=== PATIENT | female | born 1960 | race Caucasian/White ===

== ENCOUNTER 2018-07-15 20:51 | Observation (INO) ==
[2018-07-15] MEDS ORDERED: Thiamine (B-1) 100 MG in 0.9 % Sodium Chloride 50 ML IVPB STA (21:10)
[2018-07-15] MEDS ORDERED: Isovue-370 500 ML INFUS..BTL IV ONE (21:19)
[2018-07-15] MEDS ORDERED: 0.9 % Sodium Chloride 1,000 ML IVC ONE (21:19)
[2018-07-15] MEDS ORDERED: Ondansetron 4 MG/2 ML VIAL IVP ONE ×2 (21:25→23:54)
[2018-07-15] MEDS ORDERED: *HR* FentaNYL (PF) 100 MCG/2 ML VIAL IVP ONE ×2 (21:25→23:54)
--- NOTE | 2018-07-15 21:25 | Emergency Department Note ---
Disposition Clinical Impression: Biliary colic, RUQ pain Abdominal pain Qualifiers: Abdominal location: right upper quadrant Qualified Code(s): R10.11 - Right upper quadrant pain Cholelithiasis Qualifiers: Cholelithiasis location: gallbladder Cholecystitis presence: without cholecystitis Biliary obstruction: without biliary obstruction Qualified Code( s): K80.20 - Calculus of gallbladder without cholecystitis without obstruction Disposition: Still a Patient Condition: Good Reasons to Return/Additional Instructions: Return to the emergency department if you experience worsening abdominal pain, fevers, cannot tolerate food or liquids due to vomiting, begin vomiting blood, or have any other symptoms that concern you. Follow-up with your surgeon Dr. Rodriguez at first available appointment to discuss options for treatment of your gallstones. Take the medications prescribed to you earlier today as needed for pain and nausea. Referrals: Unruly Alvarez MD [Primary Care Provider] - Forms: ED Satisfaction Letter, Work/School Release General Adult HPI - General Chief complaint: ED Abdominal Pain Stated complaint: "Abd Pain/N/V/States Was Here Earlier Today" Time Seen by Provider: 07/15/18 21:03 Source: patient, family Mode of arrival: ambulatory Limitations: no limitations Nursing Notes Reviewed: Yes Vital Signs Reviewed: Yes - History of Present Illness HPI Narrative: 57 yo female presents to the emergency department with the complaint of right upper quadrant pain, nausea and vomiting. She was seen earlier today at this facility and diagnosed with biliary colic and gallstones but not acute cholecystitis. She was sent home with Zofran and hydrocodone. She has taken 2 hydrocodone at home but states her abdominal pain has only gotten worse. She states this abdominal pain started at 4:00 this morning and has been worsening since then. She denies fever, chills, chest pain, shortness of breath, lower abdominal pain, urinary symptoms, diarrhea, blood in her emesis or stools. Pain Scale: 10 - Related Data Previous Rx's Medication Instructions Recorded HYDROcodone/Acet 5/325 mg [[place] 1 tab PO Q6H PRN 3 Days #12 tab 07/15/18 5-325 mg] Ondansetron ODT [Zofran ODT] 4 mg SL Q6HR PRN #12 tab.rapdis 07/15/18 Allergies Allergy/AdvReac Type Severity Reaction Status Date / Time No Known Allergies Allergy Verified 06/27/18 07:15 All systems ED: reviewed and negative except as stated. Review of Systems: As Per HPI Constitutional: Denies: fever, chills, weakness Eyes: Denies: vision change ENT ED: Denies: throat pain Cardiovascular: Denies: chest pain, palpitations, dyspnea on exertion Respiratory: Denies: cough, dyspnea, wheezes Gastrointestinal: Reports: abdominal pain, nausea, vomiting. Denies: diarrhea Genitourinary: Denies: dysuria, frequency, hematuria Musculoskeletal: Reports: back pain (Right lower back) Integumentary: Denies: rash Neurological: Denies: headache, weakness Psychiatric: Denies: anxiety Endocrine: Denies: fatigue Hematological/Lymphatic: Denies: easy bleeding Past Medical History - Past Medical History Medical history: Reports: non-contributory - Social History Smoking Status: Former smoker Alcohol use: Reports: none Drug use: Reports: none Physical Exam - General Limitations: no limitations General appearance: alert, in no apparent distress - Head Head exam: atraumatic, normocephalic - Eye Eye exam: Present: normal appearance, PERRL, EOMI - ENT ENT exam: normal exam, normal oropharynx, mucous membranes moist - Neck Neck exam: Present: normal inspection. Absent: tenderness, lymphadenopathy - Chest Chest inspection: Present: normal inspection. Absent: tenderness - Respiratory Respiratory exam: Present: normal lung sounds bilaterally. Absent: wheezes - Cardiovascular Cardiovascular exam: Present: regular rate, normal rhythm - Abdominal Exam Abdominal exam: Present: soft, tenderness. Absent: distention, guarding, rebound, Ambrose's sign, tenderness at McBurney's Point Abdominal tenderness: Present: RUQ - Extremities Exam Extremities exam: Present: normal inspection. Absent: tenderness, pedal edema - Back Exam Back exam: Present: tenderness, paraspinal tenderness. Absent: CVA tenderness (R), CVA tenderness (L) - Neurological Exam Neurological exam: Present: alert, oriented X3, CN II-XII intact - Psychiatric Psychiatric exam: Present: flat affect - Skin Skin exam: Present: warm, dry, intact Course Vital Signs Temperature 98.2 F 07/15/18 21:03 Pulse Rate 78 07/15/18 21:03 Respiratory Rate 20 07/15/18 21:03 Blood Pressure 157/87 07/15/18 21:03 O2 Sat by Pulse Oximetry 97 07/15/18 21:03 Temperature 98.2 F 07/15/18 21:03 Pulse Rate 76 07/15/18 22:26 Respiratory Rate 16 07/15/18 22:26 Blood Pressure 129/66 07/15/18 22:26 O2 Sat by Pulse Oximetry 100 07/15/18 22:26 Oxygen Delivery Oxygen Delivery Room Air Medical Decision Making - MDM Narrative Medical decision making narrative: Since this patient was seen earlier today, and had a hepatic panel and bedside ultrasound done, but her pain continues to worsen we will do a further workup. Do CBC, BMP, lipase, lactic, urinalysis, troponin, EKG, CT abdomen and pelvis with contrast. With the patient fentanyl and Zofran for pain and nausea. 2300 - as patient's lab work came back showing a slight leukocytosis, but was otherwise unremarkable. She was reassessed and her pain and nausea under control at this time. We are awaiting CAT scan. She will be signed out to the night team. - Medical Records Medical records reviewed: Yes I reviewed the patient's medical records. - Lab Data Lab results reviewed: Yes I reviewed the patient's lab results. Result diagrams: 07/15/18 21:28 07/15/18 21:28 Lab Results 07/15/18 07/15/18 07/15/18 Range/Units 21:28 21:28 21:42 WBC 13.5 H (4.3-11.1) K/mcL RBC 4.51 (3.82-4.97) M/mcL Hgb 13.0 (11.5-15.4) g/dL Hct 38.2 (35.3-44.9) % MCV 84.7 (83.0-100.0) fL MCH 28.8 (28.0-33.3) pg MCHC 34.0 (31.6-35.5) g/dL RDW 12.7 (11.5-14.5) % Plt Count 351 (140-400) K/mcL MPV 10.0 (9.4-12.4) fL Immature Gran % 0.5 (0-4) % Seg Neutrophils % 86.6 % Lymphocytes % 8.8 % Monocytes % 3.8 % Eosinophils % 0.1 % Basophils % 0.2 % Neutrophils # 11.7 H (1.6-8.9) K/mcL Lymphocytes # 1.2 (0.6-4.6) K/mcL Monocytes # 0.5 (0.0-1.3) K/mcL Eosinophils # 0.0 (0.0-0.6) K/mcL Basophils # 0.0 (0.0-0.2) K/mcL Sodium 137 (136-145) mEq/L Potassium 3.8 (3.5-5.1) mEq/L Chloride 105 (98-107) mEq/L Carbon Dioxide 24 (23-29) mEq/L BUN 11 (6-20) mg/dL Creatinine 0.77 (0.60-1.20) mg/dL Est GFR ( Amer) > 60 (> 60) Est GFR (Non-Af Amer) > 60 (> 60) BUN/Creatinine Ratio 14 (6-26) Glucose 148 H (70-105) mg/dL Calculated Osmolality 286 (280-300) Lactic Acid 1.0 (0.5-2.2) mmol/L Calcium 9.4 (8.6-10.3) mg/dL Troponin I < 0.03 (< 0.04) ng/mL Lipase 8 L (11-82) Units/L - Radiology Data Radiology results reviewed: Yes I reviewed the patient's radiology results. - EKG Data EKG #1 EKG attestation: Yes I reviewed and interpreted this EKG. EKG results narrative: EKG done at 22:30 on 07/15/2018 Her rate 69 bpm, [place] interval 150, QRS duration 96, QT 424, QTC 455 Sinus rhythm with low voltage. No signs of any ST segment elevations or depressions. No signs of acute ischemia. No old EKG for comparison.
[2018-07-15 21:40] LABS: Basophils % 0.2 %; Eosinophils % 0.1 %; Hematocrit 38.2 % (35.3-44.9); Immature Granulocytes % 0.5 % (0-4); Lymphocytes # 1.2 K/mcL (0.6-4.6); Lymphocytes % 8.8 %; Mean Corpuscular Hemoglobin 28.8 pg (28.0-33.3); Mean Corpuscular Volume 84.7 fL (83.0-100.0); Monocytes # 0.5 K/mcL (0.0-1.3); Monocytes % 3.8 %; Neutrophils # 11.7 K/mcL (1.6-8.9); Platelet Count 351 K/mcL (140-400); Red Blood Count 4.51 M/mcL (3.82-4.97); Red Cell Distribution Width 12.7 % (11.5-14.5); Segmented Neutrophils % 86.6 %
--- NOTE | 2018-07-15 21:40 | Emergency Department Note ---
Addendum entered and electronically signed by Kim Beltran 07/19/18 10:38: Original Note: Disposition Clinical Impression: RUQ pain Abdominal pain Qualifiers: Abdominal location: right upper quadrant Qualified Code(s): R10.11 - Right upper quadrant pain Disposition: Admitted As Inpatient Condition: Good Abdominal Pain HPI - General Chief Complaint: ED Abdominal Pain Stated Complaint: "Abd Pain/N/V/States Was Here Earlier Today" Time Seen by Provider: 07/15/18 21:03 Source: patient, family - History of Present Illness HPI Narrative: Patient is a 57 year old female with no significant PMH who presents with right upper quadrant abdominal pain with associated nausea and vomiting. Patient reports that her symptoms started this morning at 4am and woke her up from sleep. Patient was seen and evaluated at 11am this morning at this facility and was diagnosed with cholelithiasis and discharged home with hydrocodone and zofran for symptomatic relief and told to follow up with GI on Tuesday. Patient states that she picked up her prescriptions at 3:30pm. At that time she took zofran and hydrocodone without any relief and she took another hydrocodone at 6:30pm which also did not relieve her pain. She admits to increasing RUQ pain which she states is now radiating into her right sided low back and nausea with four episodes nonbloody emesis which is why the patient decided to come back to the ED. Patient denies chest pain, SOB, fever chills, urinary symptoms. Pain Scale: 10 - Related Data Home Medications Medication Instructions Recorded Confirmed RX: BuPROPion SR (12 HR) 150 mg PO BID 07/16/18 [Wellbutrin SR] RX: Citalopram [CeleXA] 20 mg PO DAILY 07/16/18 RX: Duloxetine HCl [Cymbalta] 60 mg PO DAILY 07/16/18 Previous Rx's Medication Instructions Recorded RX: Ondansetron ODT [Zofran ODT] 4 mg SL Q6HR PRN #12 tab.rapdis 07/15/18 Allergies Allergy/AdvReac Type Severity Reaction Status Date / Time No Known Allergies Allergy Verified 06/27/18 07:15 Constitutional: Denies: fever, chills Eyes: Denies: eye pain, vision change ENT ED: Denies: ear pain, congestion Cardiovascular: Denies: chest pain, palpitations Respiratory: Denies: cough, dyspnea Gastrointestinal: Reports: abdominal pain, nausea, vomiting. Denies: diarrhea Genitourinary: Denies: dysuria, hematuria Musculoskeletal: Reports: back pain. Denies: neck pain Integumentary: Denies: rash, abrasion Neurological: Denies: headache, weakness Abdominal Pain PMH - Past Medical History Medical history: Reports: non-contributory - Social History Smoking status: Former smoker Alcohol use: Reports: none Drug use: Reports: none Physical Exam - General Limitations: no limitations General appearance: alert, in distress (in mild painful distress) - Head Head exam: atraumatic, normocephalic, normal inspection - Eye Eye exam: Present: normal appearance, PERRL, EOMI - ENT ENT exam: normal exam, normal oropharynx, mucous membranes moist - Neck Neck exam: Present: normal inspection, full ROM, trachea midline - Chest Chest inspection: Present: normal inspection, symmetric chest wall rise - Respiratory Respiratory exam: Present: normal lung sounds bilaterally - Cardiovascular Cardiovascular exam: Present: regular rate, normal rhythm, normal heart sounds - Abdominal Exam Abdominal exam: Present: soft, tenderness. Absent: distention, guarding, rebound, rigidity Abdominal tenderness: Present: RUQ, moderate - Extremities Exam Extremities exam: Present: normal inspection, full ROM, normal capillary refill. Absent: tenderness, pedal edema - Back Exam Back exam: Present: normal inspection, full ROM, tenderness (mild tenderness in right sided low back) - Neurological Exam Neurological exam: Present: alert, oriented X3 - Psychiatric Psychiatric exam: Present: normal affect, normal mood - Skin Skin exam: Present: warm, dry, intact, normal color. Absent: rash Course Vital Signs Temperature 98.2 F 07/15/18 21:03 Pulse Rate 78 07/15/18 21:03 Respiratory Rate 20 07/15/18 21:03 Blood Pressure 157/87 07/15/18 21:03 O2 Sat by Pulse Oximetry 97 07/15/18 21:03 Temperature 98.2 F 07/15/18 21:03 Pulse Rate 78 07/15/18 21:03 Respiratory Rate 20 07/15/18 21:03 Blood Pressure 157/87 07/15/18 21:03 O2 Sat by Pulse Oximetry 97 07/15/18 21:03 Oxygen Delivery Oxygen Delivery Room Air Abdominal Pain - Lab Data Result diagrams: 07/16/18 07:12 07/16/18 07:12
[2018-07-15 21:59] LABS: BUN/Creatinine Ratio 14 (6-26); Blood Urea Nitrogen 11 mg/dL (6-20); Calcium 9.4 mg/dL (8.6-10.3); Carbon Dioxide 24 mEq/L (23-29); Chloride 105 mEq/L (98-107); Glucose 148 mg/dL (70-105); Osmolality,Calculated 286 (280-300); Potassium 3.8 mEq/L (3.5-5.1); Sodium 137 mEq/L (136-145); eGFR For Non-African Americans > 60 (> 60)
[2018-07-15 22:31] LABS: Lipase 8 Units/L (11-82); Troponin I < 0.03 ng/mL (< 0.04)
--- NOTE | 2018-07-15 23:07 | Emergency Department Note ---
Disposition Clinical Impression: Abdominal pain Qualifiers: Abdominal location: right upper quadrant Qualified Code(s): R10.11 - Right upper quadrant pain Disposition: Still a Patient Condition: Good Reasons to Return/Additional Instructions: Return to the emergency department if you experience worsening abdominal pain, fevers, cannot tolerate food or liquids due to vomiting, begin vomiting blood, or have any other symptoms that concern you. Follow-up with your surgeon Dr. Rodriguez at first available appointment to discuss options for treatment of your gallstones. Take the medications prescribed to you earlier today as needed for pain and nausea. Referrals: Unruly Alvarez MD [Primary Care Provider] - Forms: ED Satisfaction Letter, Work/School Release General Adult HPI - General Chief complaint: ED Abdominal Pain Stated complaint: "Abd Pain/N/V/States Was Here Earlier Today" Time Seen by Provider: 07/15/18 21:03 Source: patient, family Mode of arrival: ambulatory Limitations: no limitations - History of Present Illness Pain Scale: 10 - Related Data Previous Rx's Medication Instructions Recorded HYDROcodone/Acet 5/325 mg [[place] 1 tab PO Q6H PRN 3 Days #12 tab 07/15/18 5-325 mg] Ondansetron ODT [Zofran ODT] 4 mg SL Q6HR PRN #12 tab.rapdis 07/15/18 Allergies Allergy/AdvReac Type Severity Reaction Status Date / Time No Known Allergies Allergy Verified 06/27/18 07:15 Constitutional: Denies: fever, chills, weakness Eyes: Denies: vision change ENT ED: Denies: throat pain Cardiovascular: Denies: chest pain, palpitations, dyspnea on exertion Respiratory: Denies: cough, dyspnea, wheezes Gastrointestinal: Reports: abdominal pain, nausea, vomiting. Denies: diarrhea Genitourinary: Denies: dysuria, frequency, hematuria Musculoskeletal: Reports: back pain (Right lower back) Integumentary: Denies: rash Neurological: Denies: headache, weakness Psychiatric: Denies: anxiety Endocrine: Denies: fatigue Hematological/Lymphatic: Denies: easy bleeding Past Medical History - Past Medical History Medical history: Reports: non-contributory - Social History Smoking Status: Former smoker Alcohol use: Reports: none Drug use: Reports: none Physical Exam - General Limitations: no limitations General appearance: alert, in no apparent distress Course Vital Signs Temperature 98.2 F 07/15/18 21:03 Pulse Rate 78 07/15/18 21:03 Respiratory Rate 20 07/15/18 21:03 Blood Pressure 157/87 07/15/18 21:03 O2 Sat by Pulse Oximetry 97 07/15/18 21:03 Temperature 98.2 F 07/15/18 21:03 Pulse Rate 76 07/15/18 22:26 Respiratory Rate 16 07/15/18 22:26 Blood Pressure 129/66 07/15/18 22:26 O2 Sat by Pulse Oximetry 100 07/15/18 22:26 Oxygen Delivery Oxygen Delivery Room Air Medical Decision Making - Lab Data Result diagrams: 07/15/18 21:28 07/15/18 21:28 Lab Results 07/15/18 07/15/18 07/15/18 Range/Units 21:28 21:28 21:42 WBC 13.5 H (4.3-11.1) K/mcL RBC 4.51 (3.82-4.97) M/mcL Hgb 13.0 (11.5-15.4) g/dL Hct 38.2 (35.3-44.9) % MCV 84.7 (83.0-100.0) fL MCH 28.8 (28.0-33.3) pg MCHC 34.0 (31.6-35.5) g/dL RDW 12.7 (11.5-14.5) % Plt Count 351 (140-400) K/mcL MPV 10.0 (9.4-12.4) fL Immature Gran % 0.5 (0-4) % Seg Neutrophils % 86.6 % Lymphocytes % 8.8 % Monocytes % 3.8 % Eosinophils % 0.1 % Basophils % 0.2 % Neutrophils # 11.7 H (1.6-8.9) K/mcL Lymphocytes # 1.2 (0.6-4.6) K/mcL Monocytes # 0.5 (0.0-1.3) K/mcL Eosinophils # 0.0 (0.0-0.6) K/mcL Basophils # 0.0 (0.0-0.2) K/mcL Sodium 137 (136-145) mEq/L Potassium 3.8 (3.5-5.1) mEq/L Chloride 105 (98-107) mEq/L Carbon Dioxide 24 (23-29) mEq/L BUN 11 (6-20) mg/dL Creatinine 0.77 (0.60-1.20) mg/dL Est GFR ( Amer) > 60 (> 60) Est GFR (Non-Af Amer) > 60 (> 60) BUN/Creatinine Ratio 14 (6-26) Glucose 148 H (70-105) mg/dL Calculated Osmolality 286 (280-300) Lactic Acid 1.0 (0.5-2.2) mmol/L Calcium 9.4 (8.6-10.3) mg/dL Troponin I < 0.03 (< 0.04) ng/mL Lipase 8 L (11-82) Units/L Attestation Statement - Attestation Attestation: I examined this patient and my medical decision-making was reviewed with the Resident Physician. I agree with the documented findings, disposition and treatment plan as described except to the extent set forth below. 57 year old female who is a buonce back from earlier today for abdominal pain presnts with right flank pain that radiates into the right side. Rodrigo and family are very rude during the examination to myself and our facility stating that they should have gone to [place] and that this hospital does not know how to treat their patients. I have tried to do patient recovery and tried to alleviate any miscommunication but they do not appear satisfied with their care and are requesting to be admitted immeadiately. I have discussed with devyn and family that we are waiting for a CT scan and that she may have a kidney stone and we are here to help and treat her pain and nausea and have offered more medication and asked if there is any other way I can make the clinical pciture clear. Devyn and sam continue to ignore me at bedside and speak to the janitorial staff instead that has come to visit her and will not make eye contact with me. Devyn is cooperative during exam but instead speaks with guest in the room rather than answeing my questions making it difficult to perform a full evaluation. 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 I have impressed to patient and family that [facility] is here to help the patient and that it is not our intent to treat and street, and that we are actively looking for reason for her pain and will treat accordingly. I spent about 15 minutes in the room trying to do service recovery but feel that I was unsuccesssful in changing their point of view
--- NOTE | 2018-07-15 23:16 | Emergency Department Note ---
Disposition Clinical Impression: RUQ pain Abdominal pain Qualifiers: Abdominal location: right upper quadrant Qualified Code(s): R10.11 - Right upper quadrant pain Disposition: Admitted As Inpatient Condition: Good Reasons to Return/Additional Instructions: Return to the emergency department if you experience worsening abdominal pain, fevers, cannot tolerate food or liquids due to vomiting, begin vomiting blood, or have any other symptoms that concern you. Follow-up with your surgeon Dr. Rodriguez at first available appointment to discuss options for treatment of your gallstones. Take the medications prescribed to you earlier today as needed for pain and nausea. Referrals: Unruly Alvarez MD [Primary Care Provider] - Forms: ED Satisfaction Letter, Work/School Release Time of Disposition: 04:04 General Adult HPI - General Chief complaint: ED Abdominal Pain Stated complaint: "Abd Pain/N/V/States Was Here Earlier Today" Time Seen by Provider: 07/15/18 21:03 Source: patient, family Mode of arrival: ambulatory Limitations: no limitations - History of Present Illness HPI Narrative: This is a 57-year-old female received on signout from Dr. Angelique Rueda. She has right flank pain and is a bounce back from earlier today. At signout, CT was pending. See 's documentation for the full exam and history. Pain Scale: 10 - Related Data Previous Rx's Medication Instructions Recorded HYDROcodone/Acet 5/325 mg [[place] 1 tab PO Q6H PRN 3 Days #12 tab 07/15/18 5-325 mg] Ondansetron ODT [Zofran ODT] 4 mg SL Q6HR PRN #12 tab.rapdis 07/15/18 Allergies Allergy/AdvReac Type Severity Reaction Status Date / Time No Known Allergies Allergy Verified 06/27/18 07:15 Constitutional: Denies: fever, chills, weakness Eyes: Denies: vision change ENT ED: Denies: throat pain Cardiovascular: Denies: chest pain, palpitations, dyspnea on exertion Respiratory: Denies: cough, dyspnea, wheezes Gastrointestinal: Reports: abdominal pain, nausea, vomiting. Denies: diarrhea Genitourinary: Denies: dysuria, frequency, hematuria Musculoskeletal: Reports: back pain (Right lower back) Integumentary: Denies: rash Neurological: Denies: headache, weakness Psychiatric: Denies: anxiety Endocrine: Denies: fatigue Hematological/Lymphatic: Denies: easy bleeding Past Medical History - Past Medical History Medical history: Reports: non-contributory - Social History Smoking Status: Former smoker Alcohol use: Reports: none Drug use: Reports: none Physical Exam - General Limitations: no limitations General appearance: alert, in no apparent distress Course Vital Signs Temperature 98.2 F 07/15/18 21:03 Pulse Rate 78 07/15/18 21:03 Respiratory Rate 20 07/15/18 21:03 Blood Pressure 157/87 07/15/18 21:03 O2 Sat by Pulse Oximetry 97 07/15/18 21:03 Temperature 98.2 F 07/15/18 21:03 Pulse Rate 67 07/16/18 00:06 Respiratory Rate 18 07/16/18 00:06 Blood Pressure 128/72 07/16/18 00:06 O2 Sat by Pulse Oximetry 95 07/16/18 00:06 Oxygen Delivery Oxygen Delivery Room Air Medical Decision Making - MDM Narrative Medical decision making narrative: This is a 57-year-old female with right upper quadrant pain and unclear imaging. She may have cholecystitis. I discussed her case with Dr. Biggs, the on-call surgeon, who recommended that she be admitted to the hospital service and asked that he be consulted. He said that she needed a "full evaluation." The patient was comfortable with this. - Lab Data Lab results reviewed: Yes I reviewed the patient's lab results. Lab results narrative: CBC shows leukocytosis at 13.5 BMP was unremarkable Lactic acid was normal at 1.0 Lipase was low Troponin was low Result diagrams: 07/15/18 21:28 07/15/18 21:28 Lab Results 07/15/18 07/15/18 07/15/18 Range/Units 21:28 21:28 21:42 WBC 13.5 H (4.3-11.1) K/mcL RBC 4.51 (3.82-4.97) M/mcL Hgb 13.0 (11.5-15.4) g/dL Hct 38.2 (35.3-44.9) % MCV 84.7 (83.0-100.0) fL MCH 28.8 (28.0-33.3) pg MCHC 34.0 (31.6-35.5) g/dL RDW 12.7 (11.5-14.5) % Plt Count 351 (140-400) K/mcL MPV 10.0 (9.4-12.4) fL Immature Gran % 0.5 (0-4) % Seg Neutrophils % 86.6 % Lymphocytes % 8.8 % Monocytes % 3.8 % Eosinophils % 0.1 % Basophils % 0.2 % Neutrophils # 11.7 H (1.6-8.9) K/mcL Lymphocytes # 1.2 (0.6-4.6) K/mcL Monocytes # 0.5 (0.0-1.3) K/mcL Eosinophils # 0.0 (0.0-0.6) K/mcL Basophils # 0.0 (0.0-0.2) K/mcL Sodium 137 (136-145) mEq/L Potassium 3.8 (3.5-5.1) mEq/L Chloride 105 (98-107) mEq/L Carbon Dioxide 24 (23-29) mEq/L BUN 11 (6-20) mg/dL Creatinine 0.77 (0.60-1.20) mg/dL Est GFR ( Amer) > 60 (> 60) Est GFR (Non-Af Amer) > 60 (> 60) BUN/Creatinine Ratio 14 (6-26) Glucose 148 H (70-105) mg/dL Calculated Osmolality 286 (280-300) Lactic Acid 1.0 (0.5-2.2) mmol/L Calcium 9.4 (8.6-10.3) mg/dL Troponin I < 0.03 (< 0.04) ng/mL Lipase 8 L (11-82) Units/L - Radiology Data Radiology results reviewed: Yes I reviewed the patient's radiology results. CT was concerning for possible cholecystitis. Gallbladder ultrasound showed possible cholecystitis Critical Care Time Critical Care Time: No
[2018-07-16] MEDS ORDERED: Ondansetron 4 MG/2 ML VIAL IVP ONE (00:22)
[2018-07-16] MEDS ORDERED: *HR* Promethazine 25 MG/ML VIAL IVP ONE (03:58)
[2018-07-16] MEDS ORDERED: *HR* HYDROmorphone 2 MG/ML SYRINGE IVP ONE (03:58)
--- NOTE | 2018-07-16 04:09 | Internal Med History&Physical ---
Date of Encounter: 07/16/18 Time of Encounter: 04:09 Internal Medicine - H&P: HPI Chief complaint: Abdominal pain Admitted From: Home Plans for Post Hospital Care: Home History of present illness: Ms. Carroll is a 57 year old female with no significant past medical history who presented to the ED yesterday complaining of abdominal pain, nausea, vomiting, and diarrhea. Per pt's , pt began having right sided abdominal pain just inferior to the rib border at approximately 04:00 yesterday which was shortly accompanied by nausea, vomiting, and diarrhea. Emesis was non-bloody and stool was not examined for blood but no blood noted on toilet paper. Pt came to ED for the first time around 11:00, workup consisted of bedside gallbladder ultrasound which revealed cholelithiasis, LFTs and lipase were normal. Pt was discharged to home with scripts for Zofran and [place] 5 around 14:00 and was told to follow up outpatient with Dr. Rodriguez her established surgeon. Pt's reports that after discharge the pt's abdominal pain, nausea, and vomiting worsened and no longer improved with medication. They returned to the ED around 21:00 for the same but worsened symptoms. During this ED workup the pt was found to have mild leukocytosis of 13.5. CT abdomen/pelvis revealed gallbladder polyp vs stone with possible cholecystitis. Subsequent RUQ ultrasound revealed an edematous gallbladder with wall thickening, possible cholecystitis. She received multiple doses of Fentanyl and Zofran and was sleeping comfortably during the encounter with this provider. Pt's states she was not complaining of fever, chi lls, chest pain, shortness of breath, headaches, numbness, or tingling. Past Med Surg Social Fam HX - Past Medical History Medical history: non-contributory - Past Surgical History Additional surgical history: total knee - Social History Smoking Status: Former smoker Alcohol use: none Drug use: none - Family History Mother Living Status: Age at : 52 Hx Family Cancer: Yes (colon) Father Age: 85 Living Status: Still Living Brother Age: 51 Hx Family Musculoskeletal Disorders: Yes (knee replacement) Internal Medicine - H&P: Meds HYDROcodone/Acet 5/325 mg [[place] 5-325 mg] 1 tab PO Q6H PRN 3 Days #12 tab 12/01/18 [Rx] Ondansetron ODT [Zofran ODT] 4 mg SL Q6HR PRN #12 tab.rapdis 07/15/18 [Rx] Allergy/AdvReac Type Severity Reaction Status Date / Time No Known Allergies Allergy Verified 06/27/18 07:15 All Systems PM: A 10-system review of systems was performed and is negative for pertinent findings except as documented above in the HPI. - Constitutional Constitutional: no chills, no fever(s), no night sweats - EENT Eyes: no blurry vision, no change in vision, no photophobia Ears: no decreased hearing, no tinnitus Nose, mouth and throat: no nasal congestion, no sinus pain, no sinus pressure - Cardiovascular Cardiovascular ROS IM: no chest pain, no diaphoresis, no dyspnea, no dyspnea on exertion, no lightheadedness, no palpitations - Respiratory Respiratory: no cough, no dyspnea, no dyspnea on exertion, no wheezing, no chest congestion, no excessive phlegm production, no change in phlegm color - Gastrointestinal Gastrointestinal: abdominal pain, diarrhea, nausea, vomiting, no hematemesis, no hematochezia, no melena - Genitourinary Genitourinary: no dysuria, no urinary frequency, no urinary hesitancy, no urinary incontinence - Musculoskeletal Musculoskeletal ROS IM: no muscle weakness, no numbness, no tingling - Integumentary Integumentary IM: no new lesions, no unusual bruising, no jaundice - Neurological Neurological ROS: no confusion, no headache(s), no numbness, no tingling, no weakness - Hematologic/Lymphatic Hematologic/Lymphatic: no easy bleeding, no easy bruising - Constitutional Vitals: Temp Pulse Resp BP Pulse Ox 98.2 F 67 18 128/72 95 07/15/18 21:03 07/16/18 00:06 07/16/18 00:06 07/16/18 00:06 07/16/18 00:06 General appearance: Present: cooperative, A&O X 3, pleasant Exam: General: well nourished and well developed female sleeping comfortably Head: normocephalic and atraumatic Eyes: Sclera anicteric, conjunctiva pink Neck: supple, trachea midline, no masses or lymphadenopathy Lungs: CTA bilaterally, non-labored breathing. no wheezes, rales, or rhonchi Heart: RRR +s1 +S2 no murmurs, clicks, or rubs GI: abdomen soft, TTP of RUQ, mildly distended. normoactive bowel sounds Extremities: warm, peripheral pulses palpable and symmetrical. no edema, cyanosis, or calf tenderness Neuro: reported A&Ox3 with no slurred speech Skin: warm, dry, intact Internal Med - H&P Results - Labs CBC & Chem 7: 07/15/18 21:28 07/15/18 21:28 Labs: Short CBC 07/15/18 Range/Units 21:28 WBC 13.5 H (4.3-11.1) K/mcL Hgb 13.0 (11.5-15.4) g/dL Hct 38.2 (35.3-44.9) % Plt Count 351 (140-400) K/mcL Neutrophils # 11.7 H (1.6-8.9) K/mcL BMP 07/15/18 21:28 Sodium 137 Potassium 3.8 Chloride 105 Carbon Dioxide 24 BUN 11 Creatinine 0.77 Glucose 148 H Calcium 9.4 Cardiac Enzymes 07/15/18 Range/Units 21:28 Troponin I < 0.03 (< 0.04) ng/mL - Impressions ITS Impressions Abdomen/Pelvis CT 07/15/18 21:19 IMPRESSION: Gallbladder polyp for stone and possible cholecystitis. Recommend follow-up gallbladder ultrasound. Leiomyomatous uterus. Follow-up pelvic ultrasound may be helpful. D/ / Omari Huntley MD / Omari Huntley MD Interpreting Provider: Omari Huntley MD Gallbladder Ultrasound 07/16/18 00:00 IMPRESSION: 1. Cholelithiasis. Edematous gallbladder wall thickening could be related to superimposed cholecystitis, although other secondary findings of cholecystitis are not present. Consider further evaluation with a nuclear medicine hepatobiliary scan if there are clinical findings of cholecystitis. 2. Moderate hepatomegaly and moderate hepatic steatosis. D/ / Abraham Marmolejo MD / Abraham Marmolejo MD Interpreting Provider: Abraham Marmolejo MD - Assessment and plan (1) Acute cholecystitis Current Visit: Yes Status: Acute Assessment and plan: As seen on RUQ ultrasound and CT abdomen/pelvis Afebrile RUQ pain accompanied by nausea, vomiting, and diarrhea Mildly elevated WBC at 13.5 HR and respiratory rate normal Lactic acid normal Lipase slightly decreased at 8 Obtain LFTs NPO Symptomatic control with pain meds and antiemetics IV fluid hydration Zosyn for empiric coverage Consult to Dr Rodriguez since pt is established with him (2) DVT prophylaxis Current Visit: Yes Status: Acute Assessment and plan: SQ heparin - Time Spent With Patient Total time spent is greater than 50% in coordination of care (as documented) at patient's floor/unit and/or counseling patient:
[2018-07-16] MEDS ORDERED: Ketorolac 30 MG/ML VIAL IVP PRN (04:59)
[2018-07-16] MEDS ORDERED: OXYCODONE Oral CONC 10 MG/0.5 ML ORAL.SYG SL PRN ×2 (04:59)
[2018-07-16] MEDS ORDERED: *HR* Promethazine 25 MG/ML VIAL IVP PRN ×2 (04:59→10:34)
[2018-07-16] MEDS ORDERED: Ondansetron 4 MG/2 ML VIAL IVP PRN ×2 (04:59→14:00)
[2018-07-16] MEDS ORDERED: Naloxone 0.4 MG/ML INJ IVP PRN ×2 (04:59→14:00)
[2018-07-16] MEDS ORDERED: Ringers Solution, Lactated 1,000 ML IVC SCH ×2 (05:00→14:00)
[2018-07-16] MEDS ORDERED: Piperacillin/Tazobactam 3.375 GM in 0.9 % Sodium Chloride Mini Bag 100 ML IVPB SCH (07:00)
[2018-07-16 07:25] LABS: Basophils % 0.2 %; Eosinophils % 0.3 %; Hematocrit 35.9 % (35.3-44.9); Hemoglobin 11.9 g/dL (11.5-15.4); Immature Granulocytes % 0.3 % (0-4); Lymphocytes # 1.9 K/mcL (0.6-4.6); Lymphocytes % 16.5 %; Mean Corpuscular HGB Conc 33.1 g/dL (31.6-35.5); Mean Corpuscular Hemoglobin 28.8 pg (28.0-33.3); Mean Corpuscular Volume 86.9 fL (83.0-100.0); Mean Platelet Volume 9.9 fL (9.4-12.4); Monocytes # 0.7 K/mcL (0.0-1.3); Monocytes % 6.3 %; Platelet Count 296 K/mcL (140-400); Red Blood Count 4.13 M/mcL (3.82-4.97); Red Cell Distribution Width 13.1 % (11.5-14.5); Segmented Neutrophils % 76.4 %
[2018-07-16 07:51] LABS: Alanine Aminotransferase 22 Units/L (7-52); Albumin 3.7 g/dL (3.5-5.7); Albumin/Globulin Ratio 1.4 (1.1-2.2); Alkaline Phosphatase 72 Units/L (34-104); Aspartate Amino Transferase 16 Units/L (13-39); BUN/Creatinine Ratio 12 (6-26); Bilirubin,Total 0.4 mg/dL (0.3-1.0); Blood Urea Nitrogen 8 mg/dL (6-20); Calcium 8.6 mg/dL (8.6-10.3); Carbon Dioxide 27 mEq/L (23-29); Chloride 107 mEq/L (98-107); Globulin 2.7 g/dL (2.4-3.5); Glucose 132 mg/dL (70-105); Osmolality,Calculated 286 (280-300); Potassium 3.8 mEq/L (3.5-5.1); Sodium 138 mEq/L (136-145); Total Protein 6.4 g/dL (6.4-8.9); eGFR For Non-African Americans > 60 (> 60)
[2018-07-16] MEDS ORDERED: Isovue-300 50 ML VIAL IVP ONE (07:52)
[2018-07-16] MEDS ORDERED: Bupivacaine/EPI 1:200k 0.25%PF 30 ML VIAL ONE (07:52)
--- NOTE | 2018-07-16 08:24 | Event Note ---
Date of Encounter: 07/16/18 Time of Encounter: 09:05 Ms Carroll has no significant pmhx and presented to ED RUQ pain yesterday found to have cholelithiasis and was sent home with instruction to fu with her established surgeon Dr Rodriguez on Tuesday. She returned to ED with worsening pain and cont n/v not relieved by rx zofran and pain med. CT and RUQ US concerning for cholecystitis. resting in bed,pain well controlled, no n/v currently. denies fevers, chills. Is on o2 nc, denies sob, wheezing, cough, orthopnea. Put on bc "oxygen dropped while sleeping after pain meds". No hx of lung disease, no cardiovascular disease history. no cp, pressure, dyspnea on exertion. gen- alert, awake,appears stated age eyes- pupils equal round , no scleral icterus cv- reg rate and rhythm, normal s1,s2, no murmurs appreciated lungs- ctabl, no wheezing, rhonchi or crackles, normal resp effort on o2 nc abd- soft, non tender, non distended, + bs neuro- AAOx3, CN grossly intact, no focal deficits Acute Cholecysitis Cholelithiasis leukocytosis down trending, afebrile -lfts wnl, lipase wnl, npo IVF, she was started on zosyn for empiric abx treatment on admit and consult placed to Dr Rodriguez - tigre castaneda this afternoon Incidental US finding of hepatic steatosis and moderate hepatomegaly, CT scan a/p shows normal liver- LFTs normal require outpt fu vte ppx scds, hep held for OR
--- NOTE | 2018-07-16 08:45 | General Surgery Consult Note ---
Date of Encounter: 07/16/18 Time of Encounter: 07:55 History of Present Illness Consult date: 07/16/18 Reason for consult: abdominal pain (Acute biliary colic, cholecystitis, cholelithiasis) Requesting physician: Pradeep Joseph History of present illness: 57-year-old female, admitted after presenting to the emergency department 2, 07/15/18, with complaints of abrupt onset right upper quadrant abdominal pain, nausea and vomiting. The patient indicates the pain started abruptly 0400 hours, 07/15/18, worsening with recurrent nausea and vomiting. The patient presented to the emergency department further evaluation and treatment. Her symptoms were transiently controlled vomiting her discharge with referral to ne 07/17/18. Shortly after returning home, the pain, nausea, and vomiting recurred. The patient returned to the emergency department and was subsequently admitted. CT abdomen/pelvis and gallbladder sonogram were obtained and reviewed. Findings include: Leiomyomata of the uterus, increased echogenicity of the liver with gallbladder wall thickening and edema; shadowing stones without ductal dilatatio n. I was notified of the surgical consultation was morning. Past medical history: Depression Surgical history: Multiple arthroscopic procedures right knee; right total knee replacement; colonoscopy 06/27/18. Abdominoplasty. Allergies: Tape Medications: Celexa 60 mg by mouth daily Social history: Patient is , lives at home with her spouse; she smoked while in college, less than 1 pack per day for 2-3 years. The patient does not currently smoke, consume alcohol or use illicit drugs. Family history: Mother with colon cancer at age 52; sister with colon polyps at age 62. Physical examination: Age-appropriate woman lying quietly in her hospital bed. She is lethargic due to early high doses of narcotic medications provided for pain relief She is 1.65 m tall, 93.1 kg, BMI 34.2. The patient is afebrile, currently 98.3, pulse 71, respirations 16, blood pressure 128/72 to 155/77 Skin: Warm, without obvious jaundice Lungs: Clear; no pain on inspiration at present Cardiac: Regular rate, no appreciable murmur Abdomen: Soft, no obvious tenderness at present but again patient has received multiple doses narcotic analgesics No obvious intra-abdominal masses or hepatosplenomegaly. Bowel sounds hypoactive. Extremities: No obvious clubbing, cyanosis, or edema. Laboratories: White count on presentation to the emergency department 13.5, neutrophils 11.7. Repeat this morning WBC 11.8, neutrophils 9.0 Hemoglobin currently 11.9 with hematocrit 35.9, platelet count 295,000 Electrolytes, BUN, creatinine within normal limits and have remained stable. LFTs also have remained within normal limits and stable from the time of her presentation to the ED and on repeat this morning Impression: 57-year-old female with acute biliary colic, cholecystitis cholelithiasis. Patient currently minimally symptomatic due to repeated dosing narcotic analgesics, however, experience considerable abdominal pain in the last 24 hours. I have recommended surgical intervention. The patient is a reasonable candidate for laparoscopic cholecystectomy but understands that an open c holecystectomy may become necessary. Risks of surgery include hemorrhage, infection, intra-abdominal abscess, bile leak, injury to adjacent ducts, vessels, organs, or bowel. Postcholecystectomy diarrhea is also possible. The patient expressed the desire to proceed with surgery. Her , who was at bedside, also agreed with the recommended surgical intervention. Consent for surgery obtained. Plan: Maintain nothing by mouth Laparoscopic cholecystectomy with possible cholangiogram possible open cholecystectomy today. Past Med Surg Social Fam HX - Past Medical History Medical history: non-contributory Psychiatric history: depression - Past Surgical History Additional surgical history: total knee - Social History Smoking Status: Former smoker Alcohol use: none Drug use: none - Family History Mother Living Status: Age at : 52 Hx Family Cancer: Yes (colon) Father Age: 85 Living Status: Still Living Brother Age: 51 Hx Family Musculoskeletal Disorders: Yes (knee replacement) Medications and Allergies HYDROcodone/Acet 5/325 mg [[place] 5-325 mg] 1 tab PO Q6H PRN 3 Days #12 tab 07/15/18 [Rx] Ondansetron ODT [Zofran ODT] 4 mg SL Q6HR PRN #12 tab.rapdis 07/15/18 [Rx] Celexa 20 mg DAILY 07/16/18 [History] Allergy/AdvReac Type Severity Reaction Status Date / Time No Known Allergies Allergy Verified 06/27/18 07:15 Review of Systems All systems PM: The remainder of the systems were reviewed and are negative General Surgery Exam Initial Vital Signs Temp Pulse Resp BP Pulse Ox 98.2 F 78 20 157/87 97 07/15/18 21:03 07/15/18 21:03 07/15/18 21:03 07/15/18 21:03 07/15/18 21:03 Exam Initial Vital Signs Temp Pulse Resp BP Pulse Ox 98.2 F 78 20 157/87 97 07/15/18 21:03 07/15/18 21:03 07/15/18 21:03 07/15/18 21:03 07/15/18 21:03 Results - Labs 07/16/18 07:12 07/16/18 07:12 Abnormal lab results WBC 11.8 K/mcL (4.3-11.1) H 07/16/18 07:12 Neutrophils # 9.0 K/mcL (1.6-8.9) H 07/16/18 07:12 Glucose 132 mg/dL (70-105) H 07/16/18 07:12 Lipase 8 Units/L (11-82) L 07/15/18 21:28 Diabetes panel 07/15/18 07/16/18 Range/Units 21:28 07:12 Sodium 137 138 (136-145) mEq/L Potassium 3.8 3.8 (3.5-5.1) mEq/L Chloride 105 107 (98-107) mEq/L Carbon Dioxide 24 27 (23-29) mEq/L BUN 11 8 (6-20) mg/dL Creatinine 0.77 0.69 (0.60-1.20) mg/dL Glucose 148 H 132 H (70-105) mg/dL Calcium 9.4 8.6 (8.6-10.3) mg/dL AST 16 (13-39) Units/L ALT 22 (7-52) Units/L Alkaline Phosphatase 72 (34-104) Units/L Albumin 3.7 (3.5-5.7) g/dL Calcium panel 07/15/18 07/16/18 Range/Units 21:28 07:12 Calcium 9.4 8.6 (8.6-10.3) mg/dL Albumin 3.7 (3.5-5.7) g/dL Pituitary panel 07/15/18 07/16/18 Range/Units 21:28 07:12 Sodium 137 138 (136-145) mEq/L Potassium 3.8 3.8 (3.5-5.1) mEq/L Chloride 105 107 (98-107) mEq/L Carbon Dioxide 24 27 (23-29) mEq/L BUN 11 8 (6-20) mg/dL Creatinine 0.77 0.69 (0.60-1.20) mg/dL Glucose 148 H 132 H (70-105) mg/dL Calcium 9.4 8.6 (8.6-10.3) mg/dL Adrenal panel 07/15/18 07/16/18 Range/Units 21:28 07:12 Sodium 137 138 (136-145) mEq/L Potassium 3.8 3.8 (3.5-5.1) mEq/L Chloride 105 107 (98-107) mEq/L Carbon Dioxide 24 27 (23-29) mEq/L BUN 11 8 (6-20) mg/dL Creatinine 0.77 0.69 (0.60-1.20) mg/dL Glucose 148 H 132 H (70-105) mg/dL Calcium 9.4 8.6 (8.6-10.3) mg/dL Total Bilirubin 0.4 (0.3-1.0) mg/dL AST 16 (13-39) Units/L ALT 22 (7-52) Units/L Alkaline Phosphatase 72 (34-104) Units/L Albumin 3.7 (3.5-5.7) g/dL All other labs normal. Consult Discharge Plan - Plan Referrals: Unruly Alvarez MD [Primary Care Provider] -
[2018-07-16] MEDS ORDERED: Famotidine 20 MG/2 ML VIAL IVP ONE (10:06)
[2018-07-16] MEDS ORDERED: Acetaminophen IV 1,000 MG/100 ML INFUS..BTL IVPB ONE (10:06)
--- NOTE | 2018-07-16 10:06 | Anesthesia Evaluation PreOp ---
Date of Encounter: 07/16/18 Time of Encounter: 10:00 - Past History Planned Operation: Lap Cholecystectomy Cardiac History: Denies any Significant Hx Pulmonary History: Former smoker [employer] History: Denies Any Significant HX Other Medical History: Other (Obese) Anesthesia History: No Prior Anesthetic Complications : No Alcohol Use: none Drug use: none Medications and Allergies HYDROcodone/Acet 5/325 mg [[place] 5-325 mg] 1 tab PO Q6H PRN 3 Days #12 tab 07/15/18 [Rx] Ondansetron ODT [Zofran ODT] 4 mg SL Q6HR PRN #12 tab.rapdis 07/15/18 [Rx] Celexa 20 mg DAILY 07/16/18 [History] Allergy/AdvReac Type Severity Reaction Status Date / Time No Known Allergies Allergy Verified 06/27/18 07:15 - Meds/Allergy Pre-op Review Medications Reviewed: Yes Allergies Reviewed: Yes Beta Blockers on Current Med List: No Anesthesia Results - Labs 07/16/18 07:12 07/16/18 07:12 Anesthesia Exam O2 Sat Height 1.65 m Weight 93.1 kg Weight 90.718 kg O2 Sat by Pulse Oximetry 96 O2 Sat by Pulse Oximetry 96 O2 Sat by Pulse Oximetry 92 O2 Sat by Pulse Oximetry 93 O2 Sat by Pulse Oximetry 95 O2 Sat by Pulse Oximetry 100 O2 Sat by Pulse Oximetry 95 O2 Sat by Pulse Oximetry 97 Vital Signs Temp Pulse Resp BP Pulse Ox 98.2 F 78 20 157/87 97 07/15/18 21:03 07/15/18 21:03 07/15/18 21:03 07/15/18 21:03 07/15/18 21:03 Height: 5'5 Weight: 205 lbs NPO (# of Hours): MN Pain Scale: 0 - HEENT Pupil (Motor): Pupils equal, EOMI Mallampati: III Teeth: Normal Oral Opening: Less than or equal to 3 - [employer]OR [employer] LOC: Oriented [employer] Motor: Normal RUE, Normal LUE, Normal RLE, Normal LLE, Normal Face [employer] Sensory: Normal: RUE, LUE, RLE, LLE, Face - Cardiac Rhythm: Regular Murmur: None JVD: No Carotid Bruit: No - Pulmonary Breath Sounds: bilateral Clear Respiratory Effort: Symmetrical Anesthesia Assess/Plan ASA Score: 2 Level of consciousness: Cooperative Anesthetic Plan: General Autologous Blood: No Monitoring Plan: Standard Monitors Recovery Plan: PACU (Discussed GA, agrees to proceed)
[2018-07-16] MEDS ORDERED: Ondansetron 4 MG/2 ML VIAL ONE (10:24)
[2018-07-16] MEDS ORDERED: Dexamethasone 4 MG/ML VIAL ONE (10:24)
[2018-07-16] MEDS ORDERED: *HR* Succinylcholine 200 MG/10 ML VIAL IVP ONE (10:24)
[2018-07-16] MEDS ORDERED: Lidocaine -MPF 2% 2 ML VIAL ONE (10:24)
[2018-07-16] MEDS ORDERED: Lidocaine -MPF 4% 5 ML AMPUL ONE (10:24)
[2018-07-16] MEDS ORDERED: *HR* Rocuronium Bromide 50 MG/5 ML VIAL ONE (10:24)
[2018-07-16] MEDS ORDERED: *HR* Propofol 200 MG/20 ML VIAL IVP ONE (10:28)
[2018-07-16] MEDS ORDERED: *HR* FentaNYL (PF) 100 MCG/2 ML VIAL ONE (10:33)
[2018-07-16] MEDS ORDERED: *HR* OxyCODONE Immed Rel 5 MG TABLET PO PRN ×2 (10:34→14:00)
[2018-07-16] MEDS ORDERED: *HR* HYDROmorphone (PF) 1 MG/ML SYRINGE IVP PRN (10:34)
[2018-07-16] MEDS ORDERED: Neostigmine Methylsulfate 3 MG/3 ML SYRINGE ONE (12:02)
[2018-07-16] MEDS ORDERED: Ringers Solution, Lactated 500 ML IVC ONE (12:47)
--- NOTE | 2018-07-16 12:58 | Operative Note ---
Date of procedure: 07/16/18 Pre-op diagnosis: Acute biliary colic, cholecystitis, cholelithiasis Post-op diagnosis: other (Acute cholecystitis with hydrops, cholelithiasis) Procedure: Laparoscopic cholecystectomy, intraoperative cholangiogram Complications: None apparent Anesthesia: GETA Local Anesthetics: 0.25% Sensorcaine HCL with Epinephrine 1:200,000 SubQ (cc) (20 mL) Surgeon: Hermes Rodriguez Was there an yard assistant present: No Estimated blood loss (cc): 25 IV fluids (cc): 1,100 Specimen: gallbladder Condition: stable Disposition: PACU Procedure in Detail: The patient was brought to the operating room where she was placed supine on the procedure table. The patient was identified to person and procedure. The accuracy of this information was confirmed by the patient and procedure team. The patient was then intubated and anesthetized under the supervision of Dr. Darius Marie. The abdomen was examined under anesthesia. There was no obvious hepatosplenomegaly nor any intra-abdominal masses detected. The abdomen was prepped and draped in usual sterile fashion. Due to previous abdominoplasty and reconstruction of the umbilicus, the usually placed infraumbilical port was placed supraumbilically. Several milliliters of 0.25% bupivacaine with 1- 200,000 units epinephrine was infiltrated into the skin and subcutaneous tissue. A small transverse incision was made. Dissection extended to the fascia. The fascia was grasped and elevated. An 11 mm Xcel port was established. The rigid laparoscope was placed within the obturator to visualize passage through the layers the anterior abdominal wall. When the abdominal cavity was accessed, the obturator was replaced by the rigid laparoscope, the abdomen was insufflated with gaseous carbon dioxide. There was no identified injury from placing the port. Under direct visualization, 3 ports were placed along the right costal margin in the subxiphoid, midclavicular, and anterior axillary line. Each site was infiltrated with the bupivacaine with epinephrine solution. The gallbladder was observed to be acutely inflamed and distended. The gallbladder was aspirated of approximately 50 mL clear mucoid fluid consistent with hydrops, consistent with acute obstruction of the cystic duct. The gallbladder was successfully decompressed to allow endoscopic retraction. The hepatoduodenal ligament was dissected. The cystic duct was identified, skeletonized, and clipped near the infundibulum and the gallbladder. The cystic artery so identified, clipped twice proximally, clipped once distally. A Taut cholangiocatheter was introduced via a separate percutaneous insertion site. The cystic duct was incised, the cholangiogram catheter inserted. Using C-arm fluoroscopy a cholangiogram was then completed. This demonstrated a normal- appearing common duct with no filling defects. There was free flow of contrast into the duodenum. The proximal hepatobiliary tree also appeared normal with no filling defects. Dr. Arriaga, [facility], provided an intraoperative reading, describing no additional pathology. The cholangiogram catheter was removed. The cystic duct was clipped and divided. The cystic artery was divid ed. An additional clip was placed on the cystic artery after it was transected to control a small amount of bleeding. The gallbladder was then dissected from the liver bed using Ethicon harmonic beata. Once the gallbladder was from the liver bed it was placed in an endoscopic pouch and removed via the supraumbilical port. 2 rather large stones were identified within the gallbladder. The gallbladder was retrieved and sent to pathology. The liver bed was inspected for adequate hemostasis. The patient had received subcutaneous heparin preoperatively. I deemed it prudent to apply Leo, approx 3 grams, to the liver bed to effect complete hemostasis. Once this was accomplished, the laparoscopic instrumentation was removed, the pneumoperitoneum was evacuated. The fascia of the supraumbilical port was closed with an interrupted [id number] 0 Vicryl using S retractors. Skin edges were approximated with subcuticular 4-0 Vicryl. The port sites were sealed with Dermabond dermal adhesive. The patient was taken to PACU in stable condition. Needle, sponge, and instrument counts were correct at the close of the case. Total volume of 0.25% bupivacaine with 1-200,000 units epinephrine used during this procedure, 20 mL.
--- NOTE | 2018-07-16 13:17 | Anesthesia Evaluation Post Op ---
Date of Encounter: 07/16/18 Time of Encounter: 13:15 - Vital Signs Vital Signs: Vital Signs/O2 Sat/Glucose, Most Current Temp Pulse Resp BP Pulse Ox 07/16/18 13:10 99.1 F 72 16 137/77 97 07/16/18 13:00 75 16 140/77 97 07/16/18 12:50 73 16 138/76 97 07/16/18 12:40 101.3 F H 80 16 136/77 93 07/16/18 09:21 96 - Lungs Lungs: Clear Ascult./Percussion - Airway Airway: Non-obstructed - Cardiovascular Regular Rate - Mental Status Mental Status: Alert & Oriented, Answers Appropriately - Pain Pain Scale: 0 - Nausea Vomiting Nausea Vomiting: Not Present - Hydration Hydration: Ice chips - Discharge PostOp Status: Transfer Patient to floor
[2018-07-16] MEDS ORDERED: *HR* Heparin 5,000 UNIT/ML VIAL SQ SCH (14:00)
[2018-07-16] MEDS ORDERED: *HR* OxyCODONE/APAP 5/325 TABLET PO PRN (14:00)
[2018-07-16] MEDS ORDERED: Acetaminophen 325 MG TABLET PO PRN (14:00)
[2018-07-16 15:30] VITALS: BP 144/77
--- NOTE | 2018-07-16 17:32 | Discharge Summary ---
- NOTES TO OUTPATIENT PROVIDER Notes to Outpatient Provider: s/p tigre tonya, will fu with dr Rodriguez on Tuesday, cont previously prescribed zofran and pain medication; incidental finding of hepatic steatosis and moderate hepatomegaly needs follow up by PCP. LFTs were all normal Orders not resulted at time of discharge: Pending orders 07/15/18 21:27 ECG 12 lead ECG [ECG] Stat 07/16/18 11:56 Surgical Pathology [PTH] Routine Date of Encounter: 07/16/18 Time of Encounter: 17:30 - Discharge Diagnosis (1) Acute cholecystitis Priority: Primary Status: Acute (2) DVT prophylaxis Priority: Secondary Status: Acute Hospital course: Ms. Carroll is a 57 year old female who presented to ED RUQ pain yesterday found to have cholelithiasis and was sent home with instruction to fu with her established surgeon Dr Rodriguez on Tuesday. She returned to ED with worsening pain and n/v not relieved by rx zofran and pain med, leukocytosis and CT and RUQ US concerning for cholecystitis. She was seen in the morning by geronimo and Neptali whom took her to OR this afternoon for lap tonya. She has had no post op complications, has eatne/drank and urinated. She was re evaluated by surgery whom is comofrtable with dc to home, fu Tuesday in office and december cont previously prescribed zofran and pain med. Her pos top vital signs remain stable. She is dc to home in stable condition. Of note she had incidental finding of steatosis and moderate hepatomegaly. Pt should fu with PCP as noted in dc paperwork as LFTs were all within normal limits. Discharge discussed with: patient, family, nurse, other (Dr Rodriguez) - Time Spent with Patient Total time spent providing and/or coordinating discharge services: - Discharge Medications Home Medications: HYDROcodone/Acet 5/325 mg [Hammond 5-325 mg] 1 tab PO Q6H PRN 3 Days #12 tab 07/15/18 [Rx] Ondansetron ODT [Zofran ODT] 4 mg SL Q6HR PRN #12 tab.rapdis 07/15/18 [Rx] BuPROPion SR (12 HR) [Wellbutrin SR] 150 mg PO BID 07/16/18 [History] Citalopram [CeleXA] 20 mg PO DAILY 07/16/18 [History] Duloxetine HCl [Cymbalta] 60 mg PO DAILY 07/16/18 [History] Allergies/Adverse Reactions: Allergy/AdvReac Type Severity Reaction Status Date / Time No Known Allergies Allergy Verified 06/27/18 07:15 Date of admission: 07/16/18 04:14 Primary care physician: Unruly Alvarez MD Consults: 07/16/18 05:07 Consult to Surgery [CONS] Stat Consulting Provider: Surgery [facility] - Jennifer Reason for Consult: Established with Dr Rodriguez. RUQ, nausea, vomiting, imaging concerning for cholecystitis but unclear Call Completed: No - Constitutional Vitals: Temp Pulse Resp BP Pulse Ox 98 F 96 18 144/77 93 07/16/18 15:20 07/16/18 15:20 07/16/18 15:20 07/16/18 15:20 07/16/18 14:20 General appearance: Present: cooperative, A&O X 3, pleasant Exam: gen- alert, awake,appears stated age eyes- pupils equal round , no scleral icterus cv- reg rate and rhythm, normal s1,s2, no murmurs appreciated lungs- ctabl, no wheezing, rhonchi or crackles, normal resp effort on ra abd- soft, some soreness with palpation,non distended neuro- AAOx3 - Patient Status Disposition: Home, Self-Care Overall status at discharge: patient is progressing back to baseline - Discharge Instructions Follow Up With: Unruly Alvarez MD [Primary Care Provider] - Hermes Rodriguez MD [Non-Partnered Physician] - - Diet and Activity Activity: increase activity as tolerated Diet: advance to your usual diet
--- NOTE | 2018-07-16 17:35 | General Surgery Progress Note ---
Date of Encounter: 07/16/18 Time of Encounter: 17:30 Subjective Patient reports: feels better, tolerating a regular diet Narrative: General Surgery - Post op Patient feeling significantly improved; pain almost completely resolved. Afebrile, hemodynamically stable - temperature 98.0, pulse 84-96, respirations 18, blood pressure 144/77. Patient tolerating a regular diet. Her preoperative nausea and vomiting has not recurred Lungs: Clear Abdomen soft with expected right upper quadrant tenderness but significantly improved from her preoperative exam. Port sites intact. Impression: Acute cholecystitis with hydrops consistent with acute obstruction of the c ystic duct; cholelithiasis Patient is significantly improved Satisfactory status for discharge home Discussed with patient, and her family in attendance as well as Dr. Rome Almaraz. Discharge instructions Regular diet Activities as tolerated; lifting limited to less than 20 pounds Patient may shower, wash incisions with soap and water Outpatient surgical follow-up, 07/21/18. Patient to call office in a.m. to make this appointment Patient to contact my office immediately if she develops any fevers, chills, increasing abdominal pain, nausea or vomiting. Patient has hydrocodone with acetaminophen at home (prescribed at the time of her ED presentation) to be taken when necessary pain not relieved by [id number] medications The patient also has Zofran ODT at home (prescribed at the time of her ED presentation) Tylenol, ibuprofen, Motrin, Advil, etc. is recommended for mild to moderate pain with the hydrocodone/acetaminophen to be used for pain not relieved by these met Objective Vital Signs - Last 8 Hours Temp Pulse Resp BP Pulse Ox 07/16/18 15:20 98 F 96 18 144/77 07/16/18 14:20 98.1 F 88 131/82 93 07/16/18 13:50 98.4 F 84 132/79 96 07/16/18 13:20 71 143/79 96 07/16/18 13:10 99.1 F 72 16 137/77 97 07/16/18 13:00 75 16 140/77 97 07/16/18 12:50 73 16 138/76 97 07/16/18 12:40 101.3 F H 80 16 136/77 93 Intake and Output 07/16/18 07/16/18 07/16/18 07:59 15:59 23:59 Output Total 25 / 25 Balance - / -25 Output: Estimated Blood Loss Other: # Voids 1 Weight 93.1 kg Patient Weight 07/16/18 23:59 Weight 93.1 kg - Labs 07/16/18 07:12 07/16/18 07:12 Diabetes panel 07/15/18 07/16/18 Range/Units 21:28 07:12 Sodium 137 138 (136-145) mEq/L Potassium 3.8 3.8 (3.5-5.1) mEq/L Chloride 105 107 (98-107) mEq/L Carbon Dioxide 24 27 (23-29) mEq/L BUN 11 8 (6-20) mg/dL Creatinine 0.77 0.69 (0.60-1.20) mg/dL Glucose 148 H 132 H (70-105) mg/dL Calcium 9.4 8.6 (8.6-10.3) mg/dL AST 16 (13-39) Units/L ALT 22 (7-52) Units/L Alkaline Phosphatase 72 (34-104) Units/L Albumin 3.7 (3.5-5.7) g/dL Calcium panel 07/15/18 07/16/18 Range/Units 21:28 07:12 Calcium 9.4 8.6 (8.6-10.3) mg/dL Albumin 3.7 (3.5-5.7) g/dL Pituitary panel 07/15/18 07/16/18 Range/Units 21:28 07:12 Sodium 137 138 (136-145) mEq/L Potassium 3.8 3.8 (3.5-5.1) mEq/L Chloride 105 107 (98-107) mEq/L Carbon Dioxide 24 27 (23-29) mEq/L BUN 11 8 (6-20) mg/dL Creatinine 0.77 0.69 (0.60-1.20) mg/dL Glucose 148 H 132 H (70-105) mg/dL Calcium 9.4 8.6 (8.6-10.3) mg/dL Adrenal panel 07/15/18 07/16/18 Range/Units 21:28 07:12 Sodium 137 138 (136-145) mEq/L Potassium 3.8 3.8 (3.5-5.1) mEq/L Chloride 105 107 (98-107) mEq/L Carbon Dioxide 24 27 (23-29) mEq/L BUN 11 8 (6-20) mg/dL Creatinine 0.77 0.69 (0.60-1.20) mg/dL Glucose 148 H 132 H (70-105) mg/dL Calcium 9.4 8.6 (8.6-10.3) mg/dL Total Bilirubin 0.4 (0.3-1.0) mg/dL AST 16 (13-39) Units/L ALT 22 (7-52) Units/L Alkaline Phosphatase 72 (34-104) Units/L Albumin 3.7 (3.5-5.7) g/dL Consult Discharge Plan - Plan Referrals: Hermes Rodriguez MD [Non-Partnered Physician] - Unruly Alvarez MD [Primary Care Provider] -
--- NOTE | 2018-07-17 16:36 | Electrocardiograph Report ---
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
== END 2018-07-16 18:11 | disposition home or self-care (01) ==
LOC: EMEROOARM 20:51 → 3BNU 20:51 → SUATTDRO 07-16 04:14 → 3BNU 07-16 04:37
PROVIDERS: ADMIT Internal Medicine; ATTEND Internal Medicine